=== PATIENT | female | born 2000 | race Caucasian/White ===

== ENCOUNTER → 2020-02-12 01:40 | Emergency (ER) | payer OTHER ==
[~2020-02-12] VITALS: Ht 162.6 cm; Wt 72.6 kg
--- NOTE | 2020-02-12 01:40 | NUR ---
Patient discharged with v/s stable. Written and verbal after care instructions given and explained. Patient verbalized understanding. Ambulatory with in custody. All questions addressed prior to discharge. Advised to follow up with PMD.
--- NOTE | 2020-02-12 01:40 | NUR ---
PATIENT BIB [employer]. PATIENT EXAMINED BY . PATIENT MEDICALLY CLEARED AND RELEASED IN CUSTODY IN STABLE CONDITION. ORIGINAL PRE-BOOK FORM GIVEN TO OFFICER heidi alvarado # [id number].
--- NOTE | 2020-02-12 01:40 | NUR ---
pt assessed and evaluated by vasyl morgan. no nursing interventions needed at this time.
--- NOTE | 2020-02-12 01:40 | NUR ---
[facility] RASHID, PREBOOK. TAKEN TO CHAIR C
[2020-02-12 01:42] VITALS: BP 141/81
== END ==
LOC: MED 01:40
DX: F41.9 Anxiety disorder, unspecified (principal); R00.0 Tachycardia, unspecified; Z02.89 Encounter for other administrative examinations
CPT/HCPCS: 99283